=== PATIENT | female | born 1960 | race Caucasian/White ===

== ENCOUNTER 2017-04-20 11:59 | Inpatient (IN) | payer BC ==
[2017-04-20] MEDS ORDERED: methylPREDNISolone sod succ 125mg/2ml vial IV ONE (12:25)
[2017-04-20] MEDS ORDERED: ipratropium/albuterol 3ml nebule NEB ONE (12:25)
[2017-04-20] MEDS ORDERED: albuterol 2.5 MG/3 ML nebule NEB ONE (12:25)
[2017-04-20 13:00] LABS: BASOPHILS % (AUTO) 0.3 % (0-1); EOSINOPHILS % (AUTO) 0.1 % (0-6); HEMATOCRIT 42.5 % (35.0-45.0); HEMOGLOBIN 14.3 g/dl (12.0-16.0); LYMPHOCYTES # (AUTO) 2.1 X10'3 (1.1-4.8); LYMPHOCYTES % (AUTO) 21.7 % (21-51); MEAN CORPUSCULAR HEMOGLOBIN 31.7 PG (27.0-31.0); MEAN CORPUSCULAR HGB CONC 33.6 % (33.0-36.5); MEAN CORPUSCULAR VOLUME 94.2 FL (78-98); MEAN PLATELET VOLUME 7.9 FL (7.4-10.4); MONOCYTES # (AUTO) 0.8 X10'3 (0-0.9); MONOCYTES % (AUTO) 8.3 % (2-12); NEUTROPHILS # (AUTO) 6.9 X10'3 (1.8-7.7); NEUTROPHILS % (AUTO) 69.6 % (42-75); PLATELET COUNT 229 X10'3 (140-440); RED BLOOD COUNT 4.52 X10'6 (4.20-5.60); RED CELL DISTRIBUTION WIDTH 12.6 % (11.5-14.5); WHITE BLOOD COUNT 9.9 X10'3 (4.5-11.0)
[2017-04-20 13:09] LABS: INR 0.9 INR; PARTIAL THROMBOPLASTIN TIME 37 SECONDS (22-32); PROTHROMBIN TIME 9.8 SECONDS (9.0-12.0)
[2017-04-20 13:22] LABS: ALANINE AMINOTRANSFERASE 23 U/L (12-78); ALBUMIN 3.1 G/DL (3.4-5.0); ALBUMIN/GLOBULIN RATIO 0.6 (1.1-1.5); ALKALINE PHOSPHATASE 80 IU/L (46-116); ANION GAP 9 (8-16); ASPARTATE AMINO TRANSFERASE 52 U/L (10-37); BILIRUBIN,TOTAL 0.3 MG/DL (0.1-1.0); BLOOD UREA NITROGEN 12 MG/DL (7-18); BUN/CREATININE RATIO 13.2 (6.6-38.0); CALCIUM 8.7 MG/DL (8.5-10.1); CHLORIDE 90 MMOL/L (99-107); CREATININE 0.91 MG/DL (0.40-0.90); GLUCOSE 111 MG/DL (70-104); POTASSIUM 3.4 MMOL/L (3.5-5.1); SODIUM 133 MMOL/L (135-145); TOTAL CARBON DIOXIDE 34.4 MMOL/L (24-32); TOTAL PROTEIN 8.3 G/DL (6.4-8.2); eGFR 63 ML/MIN
[2017-04-20] MEDS ORDERED: DULO60CA45 PO (13:54)
[2017-04-20] MEDS ORDERED: OLAN2.5T3 PO (13:54)
[2017-04-20] MEDS ORDERED: ALPR0.5T8 PO (13:56)
[2017-04-20] MEDS ORDERED: HYDR-569 PO (13:56)
[2017-04-20] MEDS ORDERED: levoFLOXACIN-Levaquin 500mg/D5 100 ML IV ONE (14:30)
[2017-04-20] MEDS ORDERED: ALPRAZolam 0.5mg tablet PO PRN (15:25)
[2017-04-20] MEDS ORDERED: potassium Cl 20 mEq SR tablet PO PRN ×2 (15:25)
[2017-04-20] MEDS ORDERED: magnesium 4gm in 100ml NS 100 ML IV PRN (15:25)
[2017-04-20] MEDS ORDERED: magnesium 2GM in 50ml NS 50 ML IV PRN (15:25)
[2017-04-20] MEDS ORDERED: acetaminophen 325mg tablet PO PRN (15:25)
[2017-04-20] MEDS ORDERED: potassium Cl 40MEQ/NS 500ml 500 ML IV PRN ×2 (15:25)
[2017-04-20] MEDS ORDERED: mag hydrox/Alum hydrox/simeth 30ml oral suspension PO PRN (15:25)
[2017-04-20] MEDS ORDERED: ondansetron/PF 4mg/2ml inj IV PRN (15:25)
[2017-04-20] MEDS ORDERED: HYDROcodone/acetaminophen 5mg/325mg tablet PO PRN (15:25)
[2017-04-20] MEDS ORDERED: magnesium hydroxide 30ml (MOM) UD suspension PO PRN (15:25)
[2017-04-20] MEDS ORDERED: magnesium Cl slow-release 64mg tablet PO PRN (15:25)
[2017-04-20] MEDS ORDERED: morphine 4 MG/ML inj SYRINge IV PRN ×2 (15:25)
[2017-04-20] MEDS: normal saline 1000ml 1,000 ML IV SCH (15:49)
[2017-04-20] MEDS ORDERED: methylPREDNISolone sod succ 125mg/2ml vial IV SCH (16:00)
[2017-04-20] MEDS: ipratropium/albuterol 3ml nebule NEB SCH ×2 (17:33→20:14)
[2017-04-20] MEDS: methylPREDNISolone sod succ 125mg/2ml vial IV SCH (20:58)
[2017-04-20] MEDS: oseltamivir phos 75mg capsule PO SCH (20:59)
[2017-04-20] MEDS: heparin, porcine 5000 units/ml vial SQ SCH (20:59)
[2017-04-21] MEDS: normal saline 1000ml 1,000 ML IV SCH ×3 (02:08→21:32)
[2017-04-21] MEDS: ipratropium/albuterol 3ml nebule NEB SCH ×7 (04:00→23:41)
[2017-04-21] MEDS: methylPREDNISolone sod succ 125mg/2ml vial IV SCH ×3 (05:52→21:23)
[2017-04-21 06:29] LABS: BASOPHILS % (AUTO) 0.4 % (0-1); EOSINOPHILS % (AUTO) 0 % (0-6); HEMATOCRIT 37.9 % (35.0-45.0); HEMOGLOBIN 12.9 g/dl (12.0-16.0); LYMPHOCYTES % (AUTO) 15.3 % (21-51); MEAN CORPUSCULAR HEMOGLOBIN 31.7 PG (27.0-31.0); MEAN CORPUSCULAR VOLUME 93.3 FL (78-98); MEAN PLATELET VOLUME 7.9 FL (7.4-10.4); MONOCYTES # (AUTO) 0.4 X10'3 (0-0.9); MONOCYTES % (AUTO) 5.3 % (2-12); NEUTROPHILS # (AUTO) 5.3 X10'3 (1.8-7.7); PLATELET COUNT 221 X10'3 (140-440); RED BLOOD COUNT 4.06 X10'6 (4.20-5.60); RED CELL DISTRIBUTION WIDTH 12.5 % (11.5-14.5); WHITE BLOOD COUNT 6.8 X10'3 (4.5-11.0)
[2017-04-21 06:50] LABS: ALANINE AMINOTRANSFERASE 25 U/L (12-78); ALBUMIN 2.7 G/DL (3.4-5.0); ALBUMIN/GLOBULIN RATIO 0.6 (1.1-1.5); ALKALINE PHOSPHATASE 72 IU/L (46-116); ANION GAP 10 (8-16); ASPARTATE AMINO TRANSFERASE 43 U/L (10-37); BILIRUBIN,TOTAL 0.3 MG/DL (0.1-1.0); BLOOD UREA NITROGEN 10 MG/DL (7-18); BUN/CREATININE RATIO 15.9 (6.6-38.0); CALCIUM 8.7 MG/DL (8.5-10.1); CHLORIDE 101 MMOL/L (99-107); CREATININE 0.63 MG/DL (0.40-0.90); GLUCOSE 158 MG/DL (70-104); MAGNESIUM 2.1 MG/DL (1.5-2.4); POTASSIUM 3.9 MMOL/L (3.5-5.1); SODIUM 140 MMOL/L (135-145); TOTAL CARBON DIOXIDE 29.2 MMOL/L (24-32); TOTAL PROTEIN 7.4 G/DL (6.4-8.2); eGFR > 90 ML/MIN
[2017-04-21] MEDS: K and/or MAG REPLACEMENT MC SCH (08:00)
[2017-04-21 09:06] LABS: ABG BASE EXCESS 7.2 mmol/L (-2.0-3.0); ABG HCO3 32.1 mmol/L (22.0-26.0); ABG OXYGEN SATURATION 90.4 % (95-98); ABG PH (T) 7.461 (7.350-7.450); ABG PO2 (T) 58.5 mmHg (83-108); ALLEN'S TEST Positive; FCOHb 0.5 % (0.5-1.5); FMetHb 0.3 % (0.3-1.12); FO2Hb 89.7 % (94-100); TOTAL HEMOGLOBIN 13.3 G/dl (12.0-16.0)
[2017-04-21] MEDS: OLANZapine 2.5MG tablet PO SCH (09:35)
[2017-04-21] MEDS: oseltamivir phos 75mg capsule PO SCH ×2 (09:36→21:23)
[2017-04-21] MEDS: heparin, porcine 5000 units/ml vial SQ SCH ×2 (09:36→21:22)
[2017-04-21] MEDS: duloxetine 30mg CAPSULE.DR PO SCH ×2 (09:36→21:24)
[2017-04-21 17:37] VITALS: BP 108/66
[2017-04-22] MEDS: ipratropium/albuterol 3ml nebule NEB SCH ×2 (03:42→07:03)
[2017-04-22] MEDS: methylPREDNISolone sod succ 125mg/2ml vial IV SCH (05:03)
[2017-04-22 05:41] LABS: BASOPHILS % (AUTO) 0.2 % (0-1); EOSINOPHILS % (AUTO) 0 % (0-6); HEMATOCRIT 35.4 % (35.0-45.0); HEMOGLOBIN 12.2 g/dl (12.0-16.0); LYMPHOCYTES # (AUTO) 2.1 X10'3 (1.1-4.8); LYMPHOCYTES % (AUTO) 9.5 % (21-51); MEAN CORPUSCULAR HGB CONC 34.4 % (33.0-36.5); MEAN CORPUSCULAR VOLUME 93.2 FL (78-98); MEAN PLATELET VOLUME 9.1 FL (7.4-10.4); MONOCYTES # (AUTO) 0.9 X10'3 (0-0.9); MONOCYTES % (AUTO) 4.3 % (2-12); NEUTROPHILS # (AUTO) 18.6 X10'3 (1.8-7.7); PLATELET COUNT 218 X10'3 (140-440); WHITE BLOOD COUNT 21.6 X10'3 (4.5-11.0)
[2017-04-22 05:57] LABS: ALANINE AMINOTRANSFERASE 32 U/L (12-78); ALBUMIN 2.4 G/DL (3.4-5.0); ALBUMIN/GLOBULIN RATIO 0.6 (1.1-1.5); ALKALINE PHOSPHATASE 64 IU/L (46-116); ANION GAP 8 (8-16); ASPARTATE AMINO TRANSFERASE 42 U/L (10-37); BILIRUBIN,TOTAL 0.2 MG/DL (0.1-1.0); BLOOD UREA NITROGEN 15 MG/DL (7-18); BUN/CREATININE RATIO 26.8 (6.6-38.0); CALCIUM 8.5 MG/DL (8.5-10.1); CHLORIDE 108 MMOL/L (99-107); CREATININE 0.56 MG/DL (0.40-0.90); GLUCOSE 145 MG/DL (70-104); MAGNESIUM 2.3 MG/DL (1.5-2.4); POTASSIUM 4.4 MMOL/L (3.5-5.1); SODIUM 146 MMOL/L (135-145); TOTAL CARBON DIOXIDE 30.1 MMOL/L (24-32); TOTAL PROTEIN 6.6 G/DL (6.4-8.2); eGFR > 90 ML/MIN
[2017-04-22 08:00] VITALS: BP 127/75
[2017-04-22] MEDS: K and/or MAG REPLACEMENT MC SCH (08:00)
[2017-04-22] MEDS ORDERED: TAM75C PO (08:47)
[2017-04-22] MEDS ORDERED: AZIT500T PO (08:47)
[2017-04-22] MEDS ORDERED: PRED10TA23 PO (08:47)
[2017-04-22] MEDS: OLANZapine 2.5MG tablet PO SCH (08:55)
[2017-04-22] MEDS: duloxetine 30mg CAPSULE.DR PO SCH (08:55)
[2017-04-22] MEDS: oseltamivir phos 75mg capsule PO SCH (08:55)
[2017-04-22] MEDS: heparin, porcine 5000 units/ml vial SQ SCH (08:55)
[2017-04-22] MEDS: normal saline 1000ml 1,000 ML IV SCH (10:19)
[2017-04-22 11:25] VITALS: BP 124/68
== END 2017-04-22 11:20 | disposition home or self-care (01) | DRG 193 ==
LOC: ER 12:00 → ED HOLD 15:24 → ORTHO 4S 04-21 17:38
PROVIDERS: ADMIT Family Medicine; ATTEND Internal Medicine
DX: J10.1 Influenza due to other identified influenza virus with other respiratory manifestations (principal); J96.01 Acute respiratory failure with hypoxia; J44.1 Chronic obstructive pulmonary disease with (acute) exacerbation; E87.1 Hypo-osmolality and hyponatremia; E86.0 Dehydration; Z80.8 Family history of malignant neoplasm of other organs or systems; Z82.0 Family history of epilepsy and other diseases of the nervous system; Z87.891 Personal history of nicotine dependence; Z79.899 Other long term (current) drug therapy
CPT/HCPCS: 36415; 36600; 71045; 80053; 82803; 83605; 83735; 83880; 85018; 85025; 85610; 85730; 87040; 87070; 87502; 87503; 93005; 94640; 94760; 96365; 96375; 99285; J1644; J1956; J2930; J7030

== ENCOUNTER 2024-12-07 07:55 | Day surgery (SDC) | payer MEDICARE, BC ==
--- NOTE | 2024-12-04 13:31 | ELECTROCARDIOGRAPH REPORT ---
[facility] Test Date: 2024-12-04 Test Time: 13:29:11 Pat Name: BELÉN NASH Department: [facility]-PRE-OP Patient ID: [facility]-[id number] Room: Gender: F Wool Tamper: rogelio : 1960 Requested By: BELINDA PHILIP Order Number: [id number] Reading MD: Dr. AMINA Taylor Measurements Intervals [place] Rate: 82 P: 30 OR: 97 QRS: 77 QRSD: 88 T: 58 QT: 372 QTc: 435 Interpretive Statements Sinus rhythm Short OR interval Electronically Signed On 12-05-2024 19:47:[address] AMINA Taylor Please click the below link to view image of tracing.
[2024-12-04 13:45] LABS: MEAN PLATELET VOLUME 7.4 FL (7.4-10.4); PRE OP HEMATOCRIT 34.3 % (35.0-45.0); PRE OP HEMOGLOBIN 11.3 g/dL (12.0-16.0); PRE OP PLATELET COUNT 383 X10'3 (140-440); PRE OP WHITE BLOOD COUNT 9.6 10'3 (4.8-10.8); RED CELL DISTRIBUTION WIDTH 14.6 % (11.5-14.5)
[2024-12-04 13:58] LABS: CREATININE 0.67 MG/DL (0.40-0.90); PRE OP ALT 19 U/L (30-65); PRE OP ANION GAP 3 (8-16); PRE OP AST 19 U/L (10-37); PRE OP BILIRUB, TOTAL 0.2 MG/DL (0.0-1.0); PRE OP GLUCOSE 105 MG/DL (70-104); PRE OP POTASSIUM 3.8 MMOL/L (3.4-5.1); PRE OP SODIUM 139 MMOL/L (135-145); TOTAL CARBON DIOXIDE 32.6 MMOL/L (24-32); eGFR 88 ML/MIN
[~2024-12-07] VITALS: Ht 152.4 cm; Wt 49.6 kg
[~2024-12-07 07:55] MED LIST: DULO60CA59 PO; LOVA10TA PO; OXYC10TA47 PO
[2024-12-07 08:04] VITALS: BP 120/63; PULSE 78; RESP 16; TEMP 98.4; O2SAT 96
[2024-12-07] MEDS: ringers solution, lacted 1,000 ML IV SCH (09:11)
[2024-12-07] MEDS ORDERED: labetalol 20mg/4ml (5mg/ml) syringe IV PRN (09:20)
[2024-12-07] MEDS ORDERED: enalaprilat 1.25mg/ml 2ml vial IV PRN (09:20)
[2024-12-07] MEDS ORDERED: ondansetron/PF 4mg/2ml inj IV PRN (09:20)
[2024-12-07] MEDS ORDERED: HYDROmorphone/PF 0.2 MG/ML SYRINGE IV PRN ×2 (09:20)
[2024-12-07] MEDS ORDERED: morphine 4 MG/ML inj SYRINge IV PRN (09:20)
[2024-12-07] MEDS ORDERED: ringers solution, lacted 1,000 ML IV SCH (09:20)
[2024-12-07] MEDS ORDERED: fentaNYL/PF 50MCG/1 ML 2ML syringe IV PRN ×2 (09:20)
--- NOTE | 2024-12-07 09:41 | RADIOLOGY REPORT ---
Procedure: CT CT CHEST ION Reason for study/Clinical History: LUNG MASS Comparison Study: CT CHEST LOW DOSE on DOS: 11/22/24 Exam Date: 12/07/2024 08:26 AM TECHNIQUE: Multidetector CT of the chest was performed from the lung apices to the upper abdomen without the use of intravenous contract. Axial, coronal and sagittal multiplanar reformats were performed. Radiation Dose Information: CT Dose: CTDI volume is 25 mGy. Dose-length product is 250 mGy*cm The dose indicators for CT are the volume Computed Tomography (CT) Dose Index (CTDIvol) and the Dose Length Product (DLP), and are measured in units of mGy and mGy-cm, respectively. These indicators are not patient dose, but values generated from the CT scanner acquisition factors. The report includes radiation exposure data for exposures received during this examination. FINDINGS: Lower neck: Normal thyroid. Lungs: Severe emphysema/COPD. There are innumerable pulmonary masses scattered throughout the lungs, similar to prior study dated 11/22/2024. Heart/Vascular Structures: Normal heart size. No pericardial effusion. Lymph Nodes: No adenopathy Pleura: No pleural effusion or significant pneumothorax. Musculoskeletal: No acute osseous abnormality. Soft tissues: Normal. Upper abdomen: Limited portions of the upper abdomen are unremarkable. IMPRESSION: Severe emphysema/COPD. There are innumerable pulmonary masses scattered throughout the lungs, similar to prior study dated 11/22/2024. Findings concerning for neoplastic process. Radiation optimization: All CT scans at this facility use at least one of these dose optimization techniques: automated exposure control mA and/or kV adjustment per patient size (includes targeted exams where dose is matched to clinical indication) or iterative reconstruction.
[2024-12-07] MEDS ORDERED: MIDAZolam 1 MG/ML 5ML VIAL ONE (11:51)
[2024-12-07] MEDS ORDERED: fentaNYL/PF 50MCG/1 ML 2ML syringe ONE (11:51)
[2024-12-07] MEDS ORDERED: propofol 10mg/ml 20ml vial IV ONE (11:58)
[2024-12-07] MEDS ORDERED: LIDOcaine 1%/PF 5ML 10 MG/ML VIAL ONE (12:13)
[2024-12-07 12:20] VITALS: BP 117/52; PULSE 88; RESP 16; O2SAT 99
[2024-12-07 12:30] VITALS: BP 128/64; PULSE 88; RESP 16; O2SAT 99
[2024-12-07 12:40] VITALS: BP 127/75; PULSE 78; RESP 15; O2SAT 99
[2024-12-07 12:50] VITALS: BP 122/70; PULSE 78; RESP 22; O2SAT 99
--- NOTE | 2024-12-07 14:10 | OPERATIVE REPORT ---
DATE OF SURGERY: 12/07/2024 DICTATING PHYSICIAN: Alberto Santiago MD PROCEDURE: Bronchoscopy. DESCRIPTION OF PROCEDURE: The patient was set up for robotic bronchoscopy, but the lesion that I was going after actually disappeared, but she does have significant bronchiectasis and also multiple small areas of ground-glass opacities, so we decided to go ahead and do a regular bronchoscopy with a BAL and ____. She also has some paratracheal lymph nodes that were enlarged. Consent was signed by the patient after indications and potential complications were explained. The patient was sedated by Anesthesia. She did not get intubated. Once she was sedated, the bronchoscope was introduced through the oropharynx area. We inspected the airway. There was nothing inside the airway that looked abnormal. I did a BAL on the right upper lobe with very good return. Then we switched over to the endobronchial ultrasound bronchoscope. There were multiple paratracheal lymph nodes that were enlarged in zones 4R, 4L, 7, 10R, and 10L. Obtained passes in all of them. The patient tolerated the procedure well. No complications. Alberto Santiago MD TID: [id number] RECEIPT: [id number] REJI/ZENON
--- NOTE | 2024-12-12 11:43 | PATHOLOGY REPORT ---
[facility] [address] [place] [address] NON-BOILER REPAIRMAN CYTOLOGY REPORT CaseNumber: [id number] Surgeon:Alberto Santiago PA-C CLINICAL INFORMATION CLINICAL INFORMATION: Bilateral bronchiectasis LA. DIAGNOSIS DIAGNOSIS: LYMPH NODE; ST 4R, L, 7, 10R, L; FINE NEEDLE ASP - REACTIVE BRONCHIAL EPITHELIAL CELLS. - FRAGMENTS OF LYMPHOID TISSUE. MICROSCOPIC DESCRIPTION MICROSCOPIC DESCRIPTION: 1 H&E-stained slide and 1 double cytospin are examined. The H&E-stained slide shows scant reactive bronchial epithelial cells in a background of lymphocytes. Bronchial cells show mild to marked reactive changes. Rare fragments of cartilage are present. I do not see convincing evidence of malignancy. The double cytospin slide shows scant fragments of lymphoid tissue. GROSS DESCRIPTION GROSS DESCRIPTION: Specimen is received in [employer] red, labeled with the patient's name and identified as "FNA", having a total volume of 15mL. One double cytospin slide and one cell block is prepared. The cell block is submitted as A1. The time at which the specimen was collected was 1202. The time at which the specimen was placed in formalin was 1202. Electronically signed by: Chris Vasques, 12/12/2024 11:09:00 AM
== END 2024-12-07 13:00 | disposition home or self-care (01) ==
LOC: PAS 07:55
PROVIDERS: ATTEND Internal Medicine Critical Care Medicine
DX: J47.9 Bronchiectasis, uncomplicated (principal); J42 Unspecified chronic bronchitis; R91.1 Solitary pulmonary nodule; J43.9 Emphysema, unspecified; Z87.891 Personal history of nicotine dependence; Z98.890 Other specified postprocedural states; Z79.899 Other long term (current) drug therapy
CPT/HCPCS: 31624; 31627; 31653; 36415; 71250; 80053; 82948; 85025; 87015; 87070; 87102; 87116; 87206; 88173; 88305; 93005; A4618; J2250; J2704; J3010; J3490; J7120; Z7506; Z7512; Z7610; 31628; 31652